=== PATIENT | female | born 1975 | race Caucasian/White ===

== ENCOUNTER 2019-12-03 21:26 | Emergency (ER) | payer OTHER ==
--- NOTE | 2019-12-03 21:41 | PDOC ---
Rapid Medical Evaluation Chief Complaint: Cold Symptoms Time Seen by Provider: 12/03/19 21:36 Medical Evaluation: 12/03/19 21:39 I have performed a brief in-person evaluation of this patient. The patient presents with a chief complaint of: Pt is a 44 y/o female with cough, subjective fevers, constipation for the last 8 days. She has been taking Advil and Tylenol intermittently. She denies any current pain. Pertinent physical exam findings:stable, No respiratory distress, afebrile in t riage I have ordered the following: chest xray The patient will proceed to the ED for further evaluation Discharge Disposition - Diagnosis Cough - Referrals - Patient Instructions - Post Discharge Activity
[2019-12-03 21:50] VITALS: BP 94/77; PULSE 87; TEMP 98.7; BMI 38.0
--- NOTE | 2019-12-03 23:47 | PDOC ---
Attending Attestation - Resident Resident Name: Lázaro Rod - ED Attending Attestation I have performed the following: I have examined & evaluated the patient, The case was reviewed & discussed with the resident, I agree w/resident's findings & plan - HPI HPI: 12/04/19 02:36 see resident hpi - Physicial Exam PE: 12/04/19 02:36 see resident exam - Medical Decision Making 12/04/19 02:36 44-year-old female with sore throat body aches and left lower quadrant pain Plan for labs, UA as well as CT scan abdomen and pelvis IV fluid normal saline 1 L bolus as well as IV Tylenol given Patient is well-appearing Pending results plan for DC home
[2019-12-03] MEDS ORDERED: SODIUM CHLORIDE 0.9% 1000 ML INFUS.BAG IV ONE (23:54)
[2019-12-03] MEDS ORDERED: ACETAMINOPHEN 1000 MG/100 ML VIAL (NON FORMULARY) IVPB ONE (23:54)
--- NOTE | 2019-12-04 00:07 | PDOC ---
History of Present Illness - General Chief Complaint: Cold Symptoms Stated Complaint: FEVER Time Seen by Provider: 12/03/19 21:36 History Source: Patient Exam Limitations: No Limitations - History of Present Illness Initial Comments: 12/04/19 00:04 44-year-old female with a past medical history of asthma who presents with eight days of cold like symptoms. The patient states that for a day shes had intermittent fevers, sore throat, try throat, nausea but no vomiting, slight c ough, and intermittent headache. The patient also endorses two days of left upper quadrant of [place] pain. The patient describes the pain as doll non- radiating, without exacerbating or alleviating factors. She denies chest pain, shortness of breath, numbness, tingling, weakness. She has been taking Tylenol for the fever. Past History - Past Medical History Allergies/Adverse Reactions: Allergies Allergy/AdvReac Type Severity Reaction Status Date / Time No Known Allergies Allergy Verified 12/04/19 00:15 Home Medications: Ambulatory Orders Cephalexin Monohydrate [Keflex -] 500 mg PO BID #10 capsule 12/04/19 COPD: No - Psycho Social/Smoking Cessation Hx Smoking History: Never smoked Have you smoked in the past 12 months: No Information on smoking cessation initiated: No Hx Alcohol Use: No Drug/Substance Use Hx: No Review of Systems - Review of Systems Able to Perform ROS?: Yes Comments:: 12/04/19 00:05 GENERAL/CONSTITUTIONAL: + for fever and weakness. No chills. HEAD, EYES, EARS, NOSE AND THROAT: No change in vision. No ear pain or discharge. No sore throat. CARDIOVASCULAR: No chest pain, palpitations, or lightheadedness. RESPIRATORY: + for cough. No wheezing, shortness of breath, or hemoptysis. GASTROINTESTINAL: + for abdominal pain, constipation, and nausea. No vomiting or diarrhea GENITOURINARY: No dysuria, frequency, hematuria, or change in urination. MUSCULOSKELETAL: No joint or muscle swelling or pain. No neck or back pain. SKIN: No rash or lesions. NEUROLOGIC: No headache, numbness, tingling, focal weakness, loss of consciousness, or change in strength/sensation. Is the patient limited Nepali proficient: No *Physical Exam - Vital Signs Last Vital Signs Temp Pulse Resp BP Pulse Ox 98.7 F 87 18 94/77 100 12/03/19 21:39 12/03/19 21:39 12/03/19 21:39 12/03/19 21:39 12/03/19 21:39 - Physical Exam 12/04/19 00:06 GENERAL: Well developed, well nourished. Awake and alert. No acute distress. Obese. HEENT: Normocephalic, atraumatic. Hearing grossly normal. Moist mucous membranes. PERRLA, EOMI. No conjunctival pallor. Sclera are non-icteric. NECK: Supple. Full ROM. No JVD. CARDIOVASCULAR: Regular rate and rhythm. No murmurs, rubs, or gallops. PULMONARY: No evidence of respiratory distress. Lungs clear to auscultation bilaterally. No wheezing, rales, or rhonchi. ABDOMINAL: Soft. TTP in LUQ. Non-distended. No rebound or guarding. GENITOURINARY: No CVA tenderness bilaterally. MUSCULOSKELETAL: Normal range of motion at all joints. No bony deformities or tenderness. EXTREMITIES: No cyanosis. No clubbing. No edema. No calf tenderness or swelling. SKIN: Warm and dry. Normal capillary refill. No rashes. No jaundice. NEUROLOGICAL: Alert, awake, appropriate. Cranial nerves 2-12 grossly intact. Normal speech. Gait is normal without ataxia. PSYCHIATRIC: Cooperative. Good eye contact. Appropriate mood and affect. ED Treatment Course - LABORATORY CBC & Chemistry Diagram: 12/04/19 00:15 12/04/19 00:15 Medical Decision Making - Medical Decision Making 12/04/19 00:05 44-year-old female with past medical history of asthma presents with eight days of cold like symptoms. Chest x-ray is negative on my preliminary read. Patient had mild tenderness in her left upper quadrant, will take CAT scan and abdomen pelvis. Will obtain labs, if I do fluids, and give IV Tylenol. Will reassess after labs and imaging. 12/04/19 03:51 UA shows UTI. Pending CTAP. 12/04/19 04:38 CTAP negative. Will d/c with abx and PCP f/u. Discharge - Discharge Information Problems reviewed: Yes Clinical Impression/Diagnosis: Cough UTI (urinary tract infection) Qualifiers: Urinary tract infection type: site unspecified Hematuria presence: without hematuria Qualified Code(s): N39.0 - Urinary tract infection, site not specified Condition: Good Disposition: HOME - Admission No - Additional Discharge Information Prescriptions: Cephalexin Monohydrate [Keflex -] 500 mg PO BID #10 capsule - Follow up/Referral Referrals: Alyssia Figueroa MD [Primary Care Provider] - - Patient Discharge Instructions Patient Printed Discharge Instructions: DI for Viral Upper Respiratory Infection -- Adult Additional Instructions: Your ER visit is not complete until your follow up with your primary care physician. Please follow up with your primary care physician in 1-2 days. Please return to the ER if you have any signs or symptoms of chest pain, shortness of breath, uncontrollable fever, chills, nausea, vomiting, numbness, tingling, or weakness in any part of your body, changes in vision, or slurred speech. Please take your medications as prescribed. Please return to the ER if symptoms persist, worsen, or new symptoms arise. Dubois visita a la bg de emergencias no est completa hasta dubois seguimiento con dubois mdico de atencin primaria. Duc un seguimiento con dubois mdico de atencin primaria en 1-2 salcido. Regrese a la bg de emergencias si tiene signos o sntomas de dolor en el pecho, falta de aliento, fiebre incontrolable, escalofros, nuseas, vmitos, entumecimiento, hormigueo o debilidad en alguna parte de dubois cuerpo, cambios en la visin o dificultad para hablar. Por favor tome roxana medicamentos kassidy se los recetaron. Regrese a la bg de emergencias si los sntomas persisten, empeoran o surgen nuevos sntomas. Print Language: NIUEAN - Post Discharge Activity
[2019-12-04 00:32] LABS: BASO % 0.8 % (0-2.0); EOS % 1.9 % (0-4.5); HEMATOCRIT 36.7 % (32.4-45.2); HEMOGLOBIN 12.1 GM/dL (10.7-15.3); MCH 27.5 pg (25.7-33.7); MCHC 32.9 g/dl (32.0-36.0); MEAN CELL VOLUME 83.7 fl (80-96); MEAN PLT VOLUME 7.9 fl (7.5-11.1); MONO % 6.1 % (3.8-10.2); NEUT % 56.2 % (42.8-82.8); PLATELET COUNT 370 K/MM3 (134-434); RBC 4.38 M/mm3 (3.60-5.2); RDW 14.5 % (11.6-15.6); WHITE BLOOD COUNT 10.8 K/mm3 (4.0-10.0)
[2019-12-04 00:58] LABS: HCG,QUALITATIVE URINE Negative
[2019-12-04 01:01] LABS: ALBUMIN 3.5 g/dl (3.4-5.0); BILIRUBIN,TOTAL 0.1 mg/dL (0.2-1); BLOOD UREA NITROGEN 13.6 mg/dL (7-18); CALCIUM 8.6 mg/dL (8.5-10.1); CREATININE 0.7 mg/dL (0.55-1.3); TOT PROT 7.5 g/dl (6.4-8.2)
[2019-12-04 01:03] LABS: EPI CELLS 13.3 /HPF (0-5/HPF); HYALINE CASTS 10 /lpf (0-8); URINE APPEARANCE CLOUDY; URINE BACTERIA 499.9 /hpf (NEGATIVE); URINE BILIRUBIN NEGATIVE (NEGATIVE); URINE COLOR YELLOW; URINE GLUCOSE (UA) NEGATIVE (NEGATIVE); URINE KETONE NEGATIVE (NEGATIVE); URINE LEUK ESTERASE 2+ (NEGATIVE); URINE NITRITE NEGATIVE (NEGATIVE); URINE PROTEIN TRACE (NEGATIVE); URINE RBC 2 /hpf (0-4); URINE UROBILINOGEN 0.2 mg/dL (0.2-1.0); URINE WBC 26 /hpf (0-5)
== END 2019-12-04 04:42 | disposition home or self-care (01) ==
LOC: JER 21:26
DX: N39.0 Urinary tract infection, site not specified (principal); R05 Cough
CPT/HCPCS: 36415; 71046-TC-FY; 74177-TC; 80053; 81003; 83690; 84703; 85025; 99285-25; J0131; J7030; Q9967

== ENCOUNTER 2020-04-22 11:00 | Emergency (ER) | payer OTHER ==
[2020-04-22 11:12] VITALS: BP 126/67; PULSE 62; TEMP 97.8; BMI 43.4
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
[2020-04-22] MEDS ORDERED: KETOROLAC TROMETHAMINE 30 MG/1 ML VIAL IM ONE (11:33)
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
[2020-04-22] MEDS ORDERED: KETOROLAC TROMETHAMINE 30 MG/1 ML VIAL ONE (11:41)
== END 2020-04-22 13:01 | disposition home or self-care (01) ==
LOC: JERFT 11:00
PROC: 3E0333Z Introduction of Anti-inflammatory into Peripheral Vein, Percutaneous Approach (ICD-10-PCS; principal; 2020-04-22)
DX: M79.641 Pain in right hand (principal); M54.5 Low back pain
CPT/HCPCS: 72100-TC-FY; 73130-TC-LT-FY; 99284-25